=== PATIENT | male | born 1990 | race Caucasian/White ===

== ENCOUNTER 2017-12-28 02:13 | Emergency (ER) | payer OTHER ==
[2017-12-28] MEDS ORDERED: RISP1TAB2 PO (14:24)
[2017-12-28] MEDS ORDERED: BENZ0.5T PO (14:24)
== END 2017-12-28 03:31 | disposition left against medical advice (07) ==
LOC: NEPD 02:13
DX: Z00.8 Encounter for other general examination (principal); Z53.21 Procedure and treatment not carried out due to patient leaving prior to being seen by health care provider
CPT/HCPCS: 99281

== ENCOUNTER 2017-12-28 13:08 | Inpatient (IN) | payer SELFPAY ==
[~2017-12-28] VITALS: Ht 170.2 cm; Wt 68.2 kg
[2017-12-28 13:25] VITALS: BP 161/84; PULSE 79; RESP 18; TEMP 98.9; O2SAT 98
[2017-12-28 14:11] LABS: HEMOGLOBIN 14.8 GM/DL (13.0-17.0); MEAN CELL VOLUME 83.4 FL (80.0-100.0); RED BLOOD COUNT 5.28 MIL/MM3 (4.50-5.90); WHITE BLOOD COUNT 8.2 TH/MM3 (4.0-11.0)
[2017-12-28 14:12] LABS: AUTOMATED NEUTROPHIL # 5.6 TH/MM3 (1.8-7.7); BASOPHIL % 0.5 % (0.0-2.0); EOSINOPHIL # 0.1 TH/MM3 (0-0.4); EOSINOPHIL % 1.5 % (0.0-4.0); LYMPHOCYTE # 1.8 TH/MM3 (1.0-4.8); MEAN CORPUSCULAR HEMOGLOBIN 27.9 PG (27.0-34.0); MEAN CORPUSCULAR HGB CONC 33.5 % (32.0-36.0); MEAN PLATELET VOLUME 9.2 FL (7.0-11.0); MONO % 7.3 % (0.0-8.0); MONOCYTE # 0.6 TH/MM3 (0-0.9); NEUT % 68.7 % (16.0-70.0); PLATELET COUNT 252 TH/MM3 (150-450); RED CELL DISTRIBUTION WIDTH 13.6 % (11.6-17.2)
[2017-12-28] MEDS ORDERED: BENZ0.5T PO (14:24)
[2017-12-28] MEDS ORDERED: RISP1TAB2 PO (14:24)
[2017-12-28 14:31] LABS: ALBUMIN 4.6 GM/DL (3.4-5.0); ALT (GPT) 23 U/L (12-78); AST (GOT) 26 U/L (15-37); BICARBONATE 22.4 MEQ/L (21.0-32.0); BLOOD UREA NITROGEN 5 MG/DL (7-18); CALCIUM 9.4 MG/DL (8.5-10.1); CHLORIDE 101 MEQ/L (98-107); CREATININE 1.07 MG/DL (0.60-1.30); GLOMERULAR FILTRATION RATE 84 ML/MIN (>89); GLUCOSE,RANDOM 88 MG/DL (74-106); SODIUM (NA) 136 MEQ/L (136-145)
[2017-12-28 14:40] LABS: ALKALINE PHOSPHATASE 59 U/L (45-117); TOTAL BILIRUBIN ADULT 0.9 MG/DL (0.2-1.0); TOTAL PROTEIN 8.3 GM/DL (6.4-8.2)
--- NOTE | 2017-12-28 15:00 | PD ---
HPI Chief Complaint: Psychiatric Symptoms Time Seen by Provider: 14:42 Travel History International Travel<30 days: No Contact w/Intl Traveler<30days: No Traveled to known affect area: No History of Present Illness HPI 27-year-old male presents to the emergency department voluntarily for psychoevaluation. He is requesting his psychiatric medications, benztropine, Cogentin, Risperdal, which he has not taken for 7 days. He has history of schizophrenia and depression. He says his symptoms have worsened since he stopped taking his medications. Says he does not know what is and is not reality. Says reality is "kind of blurred." Reports paranoid thoughts. Says he just does not feel safe sometimes but cannot specify what type of events he does not feel safe with. Denies suicidal or homicidal ideations. Reports history of hallucinations 2 years ago, but not now. Unknown onset. Unknown duration. Worsened since stopping his medications. No known relieving factors. Reports marijuana use. Denies EtOH. Denies tobacco use. Denies emergency medical complaints at this time, such as chest pain, shortness breath , abdominal pain, nausea, vomiting, fever, recent illness. Does not have a primary care provider. Goes to [facility] in [place] for psychiatry. No known allergies. Has no other medical complaints. No other modifying factors or associated signs and symptoms. PFSH Past Medical History Immunizations Current: Yes Schizophrenia: Yes Past Surgical History Surgical History: No Previous Surgery Social History Alcohol Use: No (NOT ANYMORE) Tobacco Use: No Substance Use: Yes (" A LIL MARIJUANA") Allergies-Medications (Allergen,Severity, Reaction): Coded Allergies: No Known Allergies (Unverified , 12/28/17) Reported Meds & Prescriptions Reported Meds & Active Scripts Active Reported Benztropine (Benztropine Mesylate) 0.5 Mg Tab 0.5 Mg PO HS Risperidone 1 Mg Tab 1 Mg PO HS Review of Systems Except as stated in HPI: all other systems reviewed are Neg Physical Exam Narrative GENERAL: Well-nourished, well-developed black male patient, in no acute distress SKIN: Warm and dry. HEAD: Atraumatic. Normocephalic. EYES: Pupils equal and round. ENT: Mucosa pink and moist. NECK: Supple. Trachea midline. CARDIOVASCULAR: Regular rate and rhythm. No murmur appreciated. RESPIRATORY: No accessory muscle use. Clear to auscultation. Breath sounds equal bilaterally. GASTROINTESTINAL: Abdomen soft, non-tender, nondistended. Hepatic and splenic margins not palpable. Bowel sounds are active 4 quadrants. MUSCULOSKELETAL: No obvious deformities. No clubbing. No cyanosis. No edema. BACK: No CVA tenderness. NEUROLOGICAL: Flat affect. Monotone voice.. Awake and alert. Oriented 3. No obvious cranial nerve deficits. Motor grossly within normal limits. Normal speech. Moves all extremities. 5/5 strength to all extremities. PSYCHIATRIC: No delusional thought processes. No hallucinations. Data Data Last Documented VS Vital Signs Date Time Temp Pulse Resp B/P (MAP) Pulse Ox O2 Delivery O2 Flow Rate FiO2 12/28/17 13:25 98.9 79 18 161/84 (109) 98 Orders Orders Complete Blood Count With Diff (12/28/17 13:28) Comprehensive Metabolic Panel (12/28/17 13:28) Thyroid Stimulating Hormone (12/28/17 13:28) Psych Screen (12/28/17 13:28) Drug Screen, Random Urine (12/28/17 13:28) Alcohol (Ethanol) (12/28/17 13:28) Labs Laboratory Tests Test 12/28/17 13:55 White Blood Count 8.2 TH/MM3 Red Blood Count 5.28 MIL/MM3 Hemoglobin 14.8 GM/DL Hematocrit 44.0 % Mean Corpuscular Volume 83.4 FL Mean Corpuscular Hemoglobin 27.9 PG Mean Corpuscular Hemoglobin Concent 33.5 % Red Cell Distribution Width 13.6 % Platelet Count 252 TH/MM3 Mean Platelet Volume 9.2 FL Neutrophils (%) (Auto) 68.7 % Lymphocytes (%) (Auto) 22.0 % Monocytes (%) (Auto) 7.3 % Eosinophils (%) (Auto) 1.5 % Basophils (%) (Auto) 0.5 % Neutrophils # (Auto) 5.6 TH/MM3 Lymphocytes # (Auto) 1.8 TH/MM3 Monocytes # (Auto) 0.6 TH/MM3 Eosinophils # (Auto) 0.1 TH/MM3 Basophils # (Auto) 0.0 TH/MM3 CBC Comment DIFF FINAL Differential Comment Blood Urea Nitrogen 5 MG/DL Creatinine 1.07 MG/DL Random Glucose 88 MG/DL Total Protein 8.3 GM/DL Albumin 4.6 GM/DL Calcium Level 9.4 MG/DL Alkaline Phosphatase 59 U/L Aspartate Amino Transf (AST/SGOT) 26 U/L Alanine Aminotransferase (ALT/SGPT) 23 U/L Total Bilirubin 0.9 MG/DL Sodium Level 136 MEQ/L Potassium Level 3.8 MEQ/L Chloride Level 101 MEQ/L Carbon Dioxide Level 22.4 MEQ/L Anion Gap 13 MEQ/L Estimat Glomerular Filtration Rate 84 ML/MIN Thyroid Stimulating Hormone 3rd Gen 1.180 uIU/ML Urine Opiates Screen NEG Urine Barbiturates Screen NEG Urine Amphetamines Screen NEG Urine Benzodiazepines Screen NEG Urine Cocaine Screen NEG Urine Cannabinoids Screen POS Ethyl Alcohol Level LESS THAN 3 MG/DL MDM Medical Decision Making Medical Screen Exam Complete: Yes Emergency Medical Condition: Yes Medical Record Reviewed: Yes Differential Diagnosis Schizophrenia, depression, medication refill, medical clearance for psychological evaluation Narrative Course Patient presents voluntarily. Physical examination and vital signs are essentially unremarkable. Patient has no medical complaints to report. Psych screen has been ordered. If the laboratory results are unremarkable, the patient will be medically cleared for psychiatric evaluation and disposition. Diagnosis Primary Impression: Encounter for psychological evaluation Condition: Stable Alethea Armas Dec 28, 2017 15:00
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
[2017-12-28] MEDS ORDERED: ALUMINUM/MAGNESIUM/SIMETH 30 ML CUP PO PRN (17:00)
[2017-12-28] MEDS ORDERED: MAGNESIUM HYDROXIDE SUSP 30 ML CUP PO PRN (17:00)
[2017-12-28] MEDS ORDERED: ACETAMINOPHEN 325 MG TAB PO PRN (17:00)
[2017-12-28 17:32] VITALS: BP 132/85; PULSE 75; RESP 16; O2SAT 97
== END 2017-12-28 17:38 | disposition left against medical advice (07) | DRG 885 ==
LOC: NED 13:08 → NEDA 16:54
PROVIDERS: ADMIT Psychiatry & Neurology Psychiatry; ATTEND Psychiatry & Neurology Psychiatry
DX: F30.9 Manic episode, unspecified (principal); F12.90 Cannabis use, unspecified, uncomplicated; Z53.21 Procedure and treatment not carried out due to patient leaving prior to being seen by health care provider
CPT/HCPCS: 80053; 80307; 84443; 85025; 99285